=== PATIENT | female | born 1990 | race African-American/Black ===

== ENCOUNTER 2019-11-23 17:18 | Emergency (ER) | payer OTHER ==
[~2019-11-23] VITALS: Ht 152.4 cm; Wt 58.5 kg
[2019-11-23 17:48] VITALS: BP 146/76
[2019-11-23] MEDS ORDERED: IBUPROFEN 400 MG TABLET. PO ONE (17:56)
[2019-11-23] MEDS: IBUPROFEN 400 MG TABLET. PO ONE (17:58)
[2019-11-23] MEDS: ACETAMINOPHEN 500 MG TABLET PO ONE (17:58)
[2019-11-23 18:26] LABS: INFLUENZA A PATIENT NEGATIVE (NEGATIVE); INFLUENZA B PATIENT NEGATIVE (NEGATIVE)
--- NOTE | 2019-11-23 19:32 | RAD ---
EXAM: PA and Lateral Views of the Chest DATE: 11/23/2019 7:03 PM INDICATION: Fever COMPARISON: No Prior FINDINGS: Exam is limited given superimposition of structures including patient's hair. The heart is not enlarged. Mediastinal and hilar contours are normal. No focal parenchymal airspace opacity. No pleural effusion or pneumothorax. IMPRESSION: Limited examination of the upper lungs from overlying structures. Otherwise no evidence for acute cardiopulmonary process. Electronically signed by: Rhett Macdonald MD (11/23/2019 7:29 PM) [email or web address]
[2019-11-23] MEDS ORDERED: IBUP-1007 PO (19:46)
[2019-11-23] MEDS ORDERED: ACET325T9 PO (19:46)
--- NOTE | 2019-11-23 19:47 | PHYS DOC ---
Past Medical History Past Medical History: No Pertinent History (ANDREAS ANDERSON APRN) Past Surgical History: No Surgical History (ANDREAS ANDERSON APRN) Alcohol Use: Occasionally Drug Use: None Social History Narrative: pt smells of marijuana (ANDREAS ANDERSON APRN) Attending Signature I have participated in the care of this patient and I have reviewed and agree with all pertinent clinical information above including history, exam, and recommendations. (SJ YU MD) Adult General Chief Complaint Chief Complaint: SORE THROAT HPI HPI Patient is a 29 year old female who presents with sorethroat for one week, cough and a fever that began today. (ANDREAS ANDERSON APRN) Review of Systems Review of Systems Constitutional: Reports fever Eyes: Denies change in visual acuity, redness, or eye pain [] HENT: Reports sore throat. Denies nasal congestion Respiratory: Reports cough, denies shortness of breath [] Cardiovascular: No additional information not addressed in HPI [] GI: Denies abdominal pain, nausea, vomiting, bloody stools or diarrhea [] : Denies dysuria or hematuria [] Musculoskeletal: Denies back pain or joint pain [] Integument: Denies rash or skin lesions [] Neurologic: Denies headache, focal weakness or sensory changes [] All other systems were reviewed and found to be within normal limits, except as documented in this note. (ANDREAS ANDERSON APRN) Current Medications Current Medications Current Medications Medications (Trade) Dose Ordered Sig/Rigo Start Time Stop Time Status Last Admin Dose Admin Acetaminophen (Tylenol) 1,000 mg 1X ONCE 11/23/19 18:00 11/23/19 18:04 DC 11/23/19 17:58 1,000 MG Ibuprofen (Motrin) 400 mg STK-MED ONCE 11/23/19 17:56 11/23/19 17:56 DC (SJ YU MD) Allergies Allergies Allergies Coded Allergies Type Severity Reaction Last Updated Verified No Known Drug Allergies 11/23/19 No (SJ YU MD) Physical Exam Physical Exam Constitutional: Well developed, well nourished, no acute distress, non-toxic appearance. [] HENT: Normocephalic, atraumatic, bilateral external ears normal, oropharynx moist, no oral exudates, nose normal. [] Eyes: PERRLA, EOMI, conjunctiva normal, no discharge. [] Neck: Normal range of motion, no tenderness, supple, no stridor. [] Cardiovascular:Heart rate regular rhythm, no murmur [] Lungs & Thorax: Bilateral breath sounds clear to auscultation [] Abdomen: Bowel sounds normal, soft, no tenderness, no masses, no pulsatile masses. [] Skin: Warm, dry, no erythema, no rash. [] Back: No tenderness, no CVA tenderness. [] Extremities: No tenderness, no cyanosis, no clubbing, ROM intact, no edema. [] Neurologic: Alert and oriented X 3, normal motor function, normal sensory function, no focal deficits noted. [] Psychologic: Affect normal, judgement normal, mood normal. [] (ANDREAS ANDERSON APRN) Current Patient Data Vital Signs Vital Signs Date Time Temp Pulse Resp B/P (MAP) Pulse Ox O2 Delivery O2 Flow Rate FiO2 11/23/19 17:48 102.7 114 16 146/76 (99) 97 Room Air 102.7 (SJ YU MD) Lab Values Laboratory Tests Test 11/23/19 17:50 Influenza Type A Antigen Negative (NEGATIVE) Influenza Type B Antigen Negative (NEGATIVE) (SJ YU MD) EKG EKG [] (ANDREAS ANDERSON APRN) Radiology/Procedures Radiology/Procedures [] (ANDREAS ANDERSON APRN) Course & Med Decision Making Course & Med Decision Making Pertinent Labs and Imaging studies reviewed. (See chart for details) This is a 29-year-old female patient presenting to the ED today with sore throat that began a week ago as well as cough and fever that began today. Temperature 102.7 on arrival. Negative rapid strep. Negative influenza A or B. Chest x-ray is negative. Discharged to home. Supportive care measures recommended. (ANDREAS ANDERSON APRN) Dragon Disclaimer Dragon Disclaimer This electronic medical record was generated, in whole or in part, using a voice recognition dictation system. (ANDREAS ANDERSON APRN) Departure Departure Impression: Primary Impression: Fever Additional Impressions: Cough Pharyngitis, acute Disposition: 01 HOME, SELF-CARE Condition: STABLE Referrals: NO PCP (PCP) Follow-up in 1-2 weeks with your doctor Patient Instructions: Fever, Adult, Viral Pharyngitis Additional Instructions: You were evaluated in the emergency room for symptoms suspicious of viral illness. Please take Tyleno/Motrin as needed for fever. Push fluids. Rest, maintain good and imaging. Follow-up with your doctor next week. Scripts Acetaminophen (TYLENOL) 325 Mg Tablet 1-2 TAB PO QID, #60 TAB 2 Refills Prov: ANDREAS ANDERSON INSIDE ACCOUNT REPRESENTATIVE 11/23/19 Ibuprofen (IBUPROFEN) 600 Mg Tablet 600 MG PO PRN Q6HRS PRN for INFLAMMATION, #20 TAB Prov: ANDREAS ANDERSON APRN 11/23/19 Problem Qualifiers Primary Impression: Fever Fever type: unspecified Qualified Codes: R50.9 - Fever, unspecified Additional Impressions: Pharyngitis, acute Pharyngitis/tonsillitis etiology: unspecified etiology Qualified Codes: J02.9 - Acute pharyngitis, unspecified JUSTINANDREAS DILLARD Nov 23, 2019 19:47 SJ YU MD Nov 23, 2019 21:32
== END 2019-11-23 20:03 | disposition home or self-care (01) ==
LOC: EDSEX 17:18 → ER 17:18
DX: J02.9 Acute pharyngitis, unspecified (principal); R05 Cough; R50.9 Fever, unspecified
CPT/HCPCS: 71046; 87070; 87804; 87880; 99285-25